=== PATIENT | male | born 1990 | race Caucasian/White ===

== ENCOUNTER 2022-03-16 14:39 | Emergency (ER) | payer BC, SELFPAY ==
--- NOTE | 2022-03-16 14:41 | ED.GENADULT ---
HPI - General Adult General Chief complaint: Upper Respiratory Infection Stated complaint: Sore Throat,Headache Time Seen by Provider: 03/16/22 14:41 Source: patient Mode of arrival: ambulatory Limitations: no limitations History of Present Illness HPI narrative: 31-year-old male patient presents to the [facility] with complaints of flulike symptoms that started late last night early this morning. Patient complaining of fever as high as 101, sore throat, headache. Denies chest pain, shortness of breath. Denies any abdominal pain, nausea, vomiting or diarrhea. Patient states he had influenza last year. Patient states he does get strep often. Patient also states that he is vaccinated against COVID. Review of Systems Review of Systems: CONSTITUTIONAL: Positive subjective fever, denies chills, or sweats. EYES: Denies visual changes, redness, or discharge. ENT: Denies rhinorrhea, congestion, positive sore throat, denies otalgia. CARDIOVASCULAR: Denies chest pain, palpitations, or edema. RESPIRATORY: Denies cough or dyspnea. GASTROINTESTINAL: Denies abdominal pain, nausea, vomiting, or diarrhea. GENITOURINARY: Denies dysuria or hematuria. SKIN: Denies rash or itching. MUSCULOSKELETAL: Denies back pain, joint pain, or myalgia. NEUROLOGIC: Positive headache, denies numbness, or weakness. PSYCHIATRIC: Denies anxiety or depression. PMFSH Comments At the time of my signature I agree with nursing past medical history, surgical, social, and family history. There is no relevant family history pertinent to the presenting complaint. Exam Narrative: GENERAL: Well-appearing, well-nourished, and in no acute distress. HEAD: Normocephalic, atraumatic. EYES: PERRLA and EOMI. ENT: Nares with erythema and edema noted to the right ear, no rhinorrhea or epistaxis. Mucous membranes moist. Posterior pharynx no erythema, tonsillar lodgment, exudates or lesions present. Bilateral TMs are clear with no erythema or foreign bodies to the canal. NECK: Supple. No lymphadenopathy CHEST: Clear to auscultation. No respiratory distress. HEART: Regular rate and rhythm. No murmur heard. Normal peripheral pulses. ABDOMEN: Soft, nontender, nondistended, normal active bowel sounds. EXTREMITIES: Normal range of motion. No edema. SKIN: Warm, dry, no rash. NEURO: No focal deficits. Alert and oriented x3. Course Course Level of Care: Express Care Visit Reevaluation(s) Reevaluation #1: Patient was reevaluated. Discussed with patient that his strep test and COVID test today were negative. Discussed with patient that this does not mean he does not have COVID considering his symptoms started late last night or early this morning it could take up to 3 to 5 days for him to test positive if he does have COVID. Discussed with patient that no matter what he does have a virus that is considered contagious. Patient needs to be away from other people and treat symptoms symptomatically with fluids and [id number] medications as needed. Advised patient that if he still having symptoms to test himself in about 2 days. We did do a PCR test today and has it sent off to the lab. Patient is to stay out of work until he receives results at this time. Patient can go back to work once he has been symptom-free and fever free for over 24 hours. Vital Signs Vital signs: Vital Signs Temperature 37.3 C 03/16/22 14:50 Pulse Rate 94 03/16/22 14:50 Respiratory Rate 24 H 03/16/22 14:50 Blood Pressure 141/94 H 03/16/22 14:50 Pulse Oximetry 100 03/16/22 14:50 Oxygen Delivery Room Air 03/16/22 14:50 Temperature 37.3 C 03/16/22 14:50 Pulse Rate 94 03/16/22 14:50 Respiratory Rate 24 H 03/16/22 14:50 Blood Pressure 141/94 H 03/16/22 14:50 Pulse Oximetry 100 03/16/22 14:50 Oxygen Delivery Room Air 03/16/22 14:50 Vital signs reviewed The patient has been informed that they may have pre-hypertension or Hypertension based on a BP reading in the department.
[2022-03-16 14:50] VITALS: BP 141/94; PULSE 94; RESP 24; TEMP 37.3; O2SAT 100
[2022-03-16 19:01] LABS: SARS-CoV-2 RNA PCR Negative
== END 2022-03-16 15:25 | disposition home or self-care (01) ==
PROVIDERS: Emergency Provider Nurse Practitioner Family
DX: B34.9 Viral infection, unspecified (principal); Z20.822 Contact with and (suspected) exposure to COVID-19
CPT/HCPCS: 87081; 87426; 87880; 99203; C9803; G0463; U0003; U0005

== ENCOUNTER 2022-08-28 09:18 | Emergency (ER) | payer BC, OTHER, SELFPAY ==
--- NOTE | ~2022-08-28 | XR_ITS ---
EXAMINATION: XR abdomen/kub 1V DATE: 08/28/2022 10:04 INDICATION: Left flank pain. Hematuria. TECHNIQUE: A supine view of the abdomen on 2 radiographs was obtained. COMPARISON: None. FINDINGS: There are no dilated loops of bowel. There is a small volume of stool in the colon. There i s no visible urolithiasis. IMPRESSION: 1. No etiology for the patient's symptoms. Reviewed, dictated and finalized at location A. 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
--- NOTE | 2022-08-28 09:36 | ED.MALEGU ---
HPI - Male Genitourinary General Chief complaint: Urogenital-Male Stated complaint: uti complaint Time Seen by Provider: 08/28/22 09:37 Source: patient Mode of arrival: ambulatory Limitations: no limitations History of Present Illness HPI Narrative: 31-year-old male presents with complaint of urinary urgency for 4 days. Reports some intermittent discomfort to suprapubic, left flank. today discomfort is worse dysuria. Reports history of epididymitis about 8 years ago with similar symptoms. Reports no testicular pain at this time. No concerns for STI. No flank pain At this time. Afebrile. Denies nausea vomiting diarrhea. Has appointment with his PCP in 2 days. All systems reviewed and negative except as noted above. Related Data Allergies Allergy/AdvReac Type Severity Reaction Status Date / Time No Known Allergies Allergy Verified 08/28/22 09:37 Review of Systems Review of Systems: CONSTITUTIONAL: Denies fever, chills, or sweats. EYES: Denies visual changes, redness, or discharge. ENT: Denies rhinorrhea, congestion, sore throat, or otalgia. CARDIOVASCULAR: Denies chest pain, palpitations, or edema. RESPIRATORY: Denies cough or dyspnea. GASTROINTESTINAL: Denies abdominal pain, nausea, vomiting, or diarrhea. GENITOURINARY: Reports urgency, dysuria, left flank pain. SKIN: Denies rash or itching. MUSCULOSKELETAL: Denies back pain, joint pain, or myalgia. NEUROLOGIC: Denies headache, numbness, or weakness. PSYCHIATRIC: Denies anxiety or depression. All other systems reviewed are negative, except as documented in HPI. PMFSH Comments At time of signature, agree with nursing past medical, surgical, social and family history. There is no relevant family history pertinent to the presenting complaint. Exam Narrative: GENERAL: This is a well-nourished, well-developed patient, in no apparent distress. HEAD: normocephalic, atraumatic. EYES: PERRL. Sclera clear/white. Vision is grossly intact. EARS: External ears normal NOSE: External nose normal NECK: Neck supple, non-tender without lymphadenopathy, masses or thyromegaly. CARDIOVASCULAR: Regular rate and rhythm without murmurs, gallops, or rubs. RESPIRATORY: Clear to auscultation. Breath sounds equal bilaterally. No wheezes, rales, or rhonchi. SKIN: warm, Dry, intact with no suspicious lesions or rash, good texture and turgor. NEURO: awake, alert, and oriented to person, place and time. There were no obvious focal neurologic abnormalities. EXTREMITIES: No joint tenderness, effusion, or edema noted. BACK: Nontender without deformity. No CVA tenderness. Course Course Level of Care: Express Care Visit Vital Signs Vital signs: Reviewed MDM - Male Genitourinary MDM Narrative Medical decision making narrative: urinalysis 2+ blood. No leukocytes or nitrates. KUB negative for stones. Will treat with antibiotic due to symptoms rate has but with PCP in 2 days. Patient is aware of diagnosis, understands and agrees to treatment plan. Anticipatory guidance given. Patient agrees to follow-up as directed and is aware of reasons to seek care at the emergency department. Portions of this record may have been created with voice recognition software Imaging Data My impression: agree with radiologist Radiologist's impression: EXAMINATION: XR abdomen/kub 1V DATE: 08/28/2022 10:04 INDICATION: Left flank pain. Hematuria. TECHNIQUE: A supine view of the abdomen on 2 radiographs was obtained. COMPARISON: None. FINDINGS: There are no dilated loops of bowel. There is a small volume of stool in the colon. There is no visible urolithiasis. IMPRESSION: 1. No etiology for the patient's symptoms. Discharge Plan Discharge Clinical Impression: Urinary urgency, Dysuria Patient Disposition: Home, Self-Care Condition: Stable Instructions: Antibiotic Form, Urinary Tract Infection in Men (ED) Additional Instructions: your urinalysis was positi
[2022-08-28 09:37] VITALS: BP 144/88; PULSE 68; RESP 18; TEMP 36.6; O2SAT 98
== END 2022-08-28 10:23 | disposition home or self-care (01) ==
PROVIDERS: Emergency Provider Nurse Practitioner Family; PCP Family Medicine
DX: R39.15 Urgency of urination (principal); R30.0 Dysuria
CPT/HCPCS: 74018; 81003; 87086; 99213; G0463

== ENCOUNTER → 2022-11-02 10:04 | Outpatient (CLI) | payer BC, OTHER, SELFPAY ==
--- NOTE | ~2022-11-02 | XR_ITS ---
EXAM: XR lumbar spine min 4V DATE: 11/02/2022 10:48 HISTORY: LOW BACK PAIN,CHRONIC . COMPARISON: None available. FINDINGS: 5 nonrib-bearing lumbar-type vertebral bodies. Pedicles intact. 5 mm retrolisthesis of L5 on S1. Vertebral body heights preserved. Mild anterior wedge deformity at L1, presumed to be physiolo gic. Mild disc space narrowing at L4-5. Moderate disc space narrowing L5-S1. 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 No pars defect. No fracture or dislocation. IMPRESSION: Grade 1 retrolisthesis and moderate degenerative disc disease at L5-S1. Reviewed, dictated and finalized at location K. IMPRESSION: Grade 1 retrolisthesis and moderate degenerative disc disease at L5 -S1.
--- NOTE | ~2022-11-02 | XR_ITS ---
EXAM: XR thoracic spine 2V DATE: 11/02/2022 10:49 HISTORY: CHRONIC THORACIC PAIN . COMPARISON: None available. FINDINGS: Vertebral body alignment intact. Vertebral body heights preserved. No disc space narrowing . No traumatic malalignment or fracture. Visualized lung parenchyma is clear. IMPRESSION: Normal thoracic spine radiograph findings. Reviewed, dictated and finalized at location K.
== END ==
PROVIDERS: PCP Family Medicine; Visit Provider Chiropractor
DX: M51.37 Other intervertebral disc degeneration, lumbosacral region (principal)
CPT/HCPCS: 72070; 72110

== ENCOUNTER 2025-04-29 17:53 | Emergency (ER) | payer OTHER, SELFPAY ==
--- OUTSIDE RECORDS SUMMARY | 2014-06-13 03:59 | XMS_ITS | Continuity of Care Document ---
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 Phone Luís REICH, Herlinda Unavailable Unavai lable Allergies, Adverse Reactions, Alerts Substance Reaction Status Criticality No Known allergies Medications Medication Instructions Dosage Effective Dates (start - stop) Status Comments erythromycin 5 mg/gram (0.5 %) Eye Ointment apply (1CM) by ophthalmic route 4 times every day after surgery to sutures - Active MULTIPLE VITAMINS (unknown strength) Not Available - Active Procedures Procedure Date REPAIR EYELID DEFECT REPAIR EYELID DEFECT POSTOP FOLLOW-UP VISIT POSTOP FOLLOW-UP VISIT TREAT EYE SOCKET FRACTURE OFFICE/OUTPATIENT VISIT, [facility] Advance Directives Directive Yes / No Effective Date File Name No Information Encounters Encounter Description Practice Location Reason(s) For Visit Diagnoses Date Provider Providers Copied on Encounter Reyna , [address] [place] [address], [id number], tel:[phone] [facility] No Information 4 Luís Pate. [address] [place] [address], [place], [id number], [place]. tel:[phone] [facility] , [address] [place] [address], [id number], tel:[phone] [facility] No Information 4 [facility]. [address] [place] [address], [address], [id number]. tel:[phone] Referring Provider: Grayson Cantor, [address] [place] [address], [place], [address] . tel:[phone] [facility], [address] [place] [address], [id number], [place] tel:[phone] [facility] No Information 4 [facility]. [address] [place] [address], [place], [place], [id number]. tel:[phone] [facility], [address] [place] [address], [id number], [place] tel:[phone] [facility] Ptosis of eyelid, unspecified 4 [facility]. [address] [place] [address], [id number]. tel:[phone] [facility], [address] [place] [address], [id number], [place] tel:[phone] [facility] Closed fracture of other facial bones 4 [facility]. [address] [place] [address], [id number]. tel:[phone] [facility], [address] [place] [address], [id number], [place] tel:[phone] [facility] Closed fracture of other facial bones 4 [facility]. [address] [place] [address], [place], [place], [id number]. tel:[phone] [facility], [address] [place] [address], [id number], [place] tel:[phone] [facility] No Information 4 [facility]. [address] [place] [address], [id number]. tel:[phone] OFFICE/OUTPA TIENT VISIT, [facility], [address] [place] [address], [id number], [place] tel:[phone] [facility] Closed fracture of other facial bones 4 [facility]. [address] [facility], [address], [place], [place], [id number]. tel:[phone] Family History Family Member Type Diagnosis Age At Onset No Information Payers Payer name Insurance type Covered alliance party ID Authoriza tion(s) No Information Social History Type Description Quantity Date Captured Comments Sex Male Smoking Status No Information Chief Complaint And Reason For Visit No Information Reason For Referral Reason For Referral No Information History Of Present Illness Encounter Date Complaint History Of Prese nt Illness pt. has had headaches ever since sx. KH Says OD doesn't loo k right to him and thinks eyes don Says OD doesn't loo k right to him and thinks eyes don Thought he was heali ng well until 3 days ago when he vo Functional Status Date Functional Assessmen t No Information Instructions Date Instruction Additional Infor velma - Educational materi als provided: Post-Op Instructions. - Educational materi als provided: Pre-Op Instructions. - Return to office in 6 weeks. Shaun Cantor - Post-op photo take n. Opens and closes well. RUL looks a little droopy. Per REW wait to see when swelliing decreases if lid does not correct itself. Will raise RUL if needed and will discuss at next visit. MARIA ALEJANDRA Closed fracture of o ther facial bones : Related to Closed fracture of other facial bones Closed fracture of o ther facial bon : - Discussed will review ct scans. 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 Will call patient after reviewing scan. fb Related to Closed fracture of other facial bon Assessments Type Assessment Date No Information Patient Care Teams Name Effective Dates (start - stop) Status Members No Information
--- OUTSIDE RECORDS SUMMARY | 2025-04-29 17:56 | XMS_ITS | Patient Health Record ---
Author Organization [facility] Address [facility] [facility] [address] [place] [address] Care Team Providers Care Caregivers Non Medical Name Role Phone Dominick Givens [phone] Reason For Referral No Information Medications Medication SIG (Take, Route, Frequency, Duration) Notes Start Date End Date Status Tamsulosin HCl 0.4 MG Capsule Oral Active Sertraline HCl 50 MG Tablet Oral Active Ciprofloxacin HCl 500 MG Tablet Oral Active Social History Social History Additional Details Category Social Info Options Details Migrated Social History Migrated Social History Tobacco Years: Former smoker 06/06/2023 Plan Of Treatment No Information Insurance Providers Payer Name Payer Address Payer Phone Subscriber Number Group Number Insured Name Patient Relationship to Insured Coverage Start Date Coverage End Date [facility] [address] [place] [address] [id number] LASHONDA CALEOR Self - patient is the insured
[2025-04-29 18:02] VITALS: BP 139/98; PULSE 84; RESP 16; TEMP 36.6; O2SAT 100
[2025-04-29 18:13] LABS: EDSTREPNEGPOS1 Negative (Negative)
--- NOTE | 2025-04-29 18:17 | ED_ITS ---
HPI - URI/Sore Throat General Chief Complaint: Upper Respiratory Infection Stated Complaint: Sore throat Time Seen by Provider: 04/29/25 18:11 Source: patient and RN notes reviewed Mode of arrival: ambulatory Limitations: no limitations History of Present Illness HPI Narrative: Patient presents today complaining of sore throat, dizziness, and headache that started this afternoon. Denies any additional symptoms or known sick contacts. Currently rates his pain 4/10, which increases with swallowing. No OTC treatment prior to arrival. Related Data Home Medications ?Medication ?Instructions ?Recorded ?Confirmed ?Last Taken ?Type No Home Medications 04/29/25 04/29/25 U nknown History Allergies Allergy/AdvReac Type Severity Reaction Status Date / Time No Known Allergies Allergy Verified 04/29/25 18:05 [facility] Comments At time of signature, I have reviewed and agree with nursing past medical, surgical, social and family history unless otherwise noted. Please see nursing chart for further information. There is no relevant family history pertinent to the presenting complaint Exam Narrative: GENERAL: Well-appearing, well-nourished, and in no acute distress. HEAD: Normocephalic, atraumatic. EYES: EOMI. No redness or drainage. Conjunctivae normal. ENT: Mucous membranes pink and moist. Nares clear. No rhinorrhea. TMs normal bilaterally. Throat mildly erythematous and edematous without exudate. Uvula midline. NECK: Normal AROM. Supple. No lymphadenopathy. CHEST: No respiratory distress. Clear to auscultation. HEART: Regular rate and rhythm. No murmur appreciated. EXTREMITIES: Normal range of motion. No edema. SKIN: Warm, dry, no rash. Capillary refill normal. Normal skin turgor. NEURO: No focal deficits. Alert and oriented x3. Gait steady. PSYCH: Normal affect. No signs of depression or anxiety. Course Course Level of Care: Express Care Visit Vital Signs Vital signs: Vital Signs Temperature 98 F 04/29/25 18:02 Pulse Rate 84 04/29/25 18:02 Respiratory Rate 16 04/29/25 18:02 Blood Pressure 139/98 H 04/29/25 18:02 Pulse Oximetry 100 04/29/25 18:02 Oxygen Delivery Room Air 04/29/25 18:02 Temperature 98 F 04/29/25 18:02 Pulse Rate 84 04/29/25 18:02 Respiratory Rate 16 04/29/25 18:02 Blood Pressure 139/98 H 04/29/25 18:02 Pulse Oximetry 100 04/29/25 18:02 Oxygen Delivery Room Air 04/29/25 18:02 Reviewed MDM - URI/Sore Throat MDM Narrative Medical decision making narrative: 34-year-old male Patient presents today complaining of sore throat, dizziness, and headache that started this afternoon. Denies any additional symptoms or known sick contacts. Currently rates his pain 4/10, which increases with swallowing. Upon exam, patient is throat is mildly erythematous and edematous without exudate. Remainder of exam is normal. Rapid strep negative. Culture pending. Symptoms likely viral in etiology or could be too early for rapid test as symptoms began a few hours prior to exam. Discussed [id number]-lvs-qgakrin medication use and duration of illness. No prescription medications indicated at this time. Anticipatory guidance given. VSS. Differential Diagnosis Differential diagnosis: Likely upper respiratory infection, viral infection, pharyngitis and other (Strep throat) Lab Data Attestation: I reviewed the patient's lab results. Labs: Lab Results 04/29/25 Range/Units 18:11 POC Grp A Strep Screen Negative (Negative) Critical Care Time Critical Care Time Critical Care Time: No Discharge Plan Discharge Clinical Impression: Pharyngitis Qualifiers: Pharyngitis/tonsillitis etiology: unspecified etiology Qualified Code(s): J02.9 - Acute pharyngitis, unspecified Patient Disposition: Home Condition: Stable Instructions: Pharyngitis (ED) Additional Instructions: Your rapid strep swab was negative today at [facility]. You will be notified in a few days if the culture comes back positive for strep, and appropriate antibiotics will be called in for you at that time. 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 Viral symptoms can be present for up to 7- 10 days. Take Tylenol or ibuprofen for fever or pain. Rest and stay hydrated. Follow up with your PCP in 7-10 days if symptoms are not improving. Go to the ER immediately if you have any difficulty breathing or swallowing. Patient Language: Honduran Prescriptions: No Action No Home Medications Follow-up/Referrals: [facility] [Primary Care Provider, Medical] Time of Disposition: 18:17
== END 2025-04-29 18:20 | disposition home or self-care (01) ==
PROVIDERS: Emergency Provider Nurse Practitioner
DX: J02.9 Acute pharyngitis, unspecified (principal)
CPT/HCPCS: 87081; 87880; 99213; G0463

== ENCOUNTER 2025-08-01 08:38 | Emergency (ER) | payer OTHER, SELFPAY ==
--- OUTSIDE RECORDS SUMMARY | 2025-08-01 08:42 | XMS_ITS | Clinical Summary ---
Author Organization [facility] Address [facility] [place] [address] Care Team Providers Care Septic Tank Cleaner Name Role Phone Winter Pond DO Primary Care Provider [phone] Allergies No known active allergies Medications CPAP MACHINE Take 1 Device by mouth every evening. Active buPROPion XL (WELLBUTRIN XL) 150 MG 24 hr tabletIndicatio ns:Mild episode of recurrent major depressive disorder,BALA (generalized anxiety disorder) Take 1 tablet (150 mg total) by mouth daily. 30 tablet 1 12/31/2023 Active sertraline (ZOLOFT) 50 MG tabletIndicatio ns:Mild episode of recurrent major depressive disorder,BALA (generalized anxiety disorder) Take 1 tablet (50 mg total) by mouth daily. 90 tablet 2 12/31/2023 Active propranolol (INDERAL) 10 MG tabletIndicatio ns:Mild episode of recurrent major depressive disorder,BALA (generalized anxiety disorder) TAKE 1 TABLET(10 MG) BY MOUTH DAILY NEEDED FOR ANXIETY 90 tablet 01/01/2024 Active Active Problems Problem Noted Date Diagnosed Date Obesity (BMI 30-39.9) 12/26/2020 Sleep apnea Anxiety Depression Skin writing Chronic low back pain Dry eye of right side Post concussive syndrome Tinnitus Immunizations Immunization Administration Dates Next Due Adenovirus Vaccine 09/11/2012 Anthrax Vaccine 12/13/2015,05/31/2015,05/03/2015 Hepatitis A (Havrix [address]) 04/22/2013,2012 Influenza (FluMist) 06/24/2014,05/19/2013 Influenza (Generic) 05/29/2016,05/03/2015,2012 Lao Encephalitis 05/31/2015,05/03/2015 Meningococcal (Menactra) 09/11/2012 PFIZER COVID-19 (ORIGINAL FO RMULATION, PURPLE CAP) mRNA, LNP-S, PF, 30 MCG/0.3 ML DOSE 11/10/2020,10/20/2020 Polio IPV (Ipol) 09/11/2012 Tdap (Generic) 01/02/2018,09/11/2012 Typhoid (Typhim ) 05/03/2015 Varicella (Varivax) 10/14/2012,09/11/2012 Family History Medical History Relation Comments Colon Cancer Cousin age 30 Heart Disease Maternal Grandfather Hypertension Maternal Grandfather Arthritis Mother Cancer Mother ovarian, breast, and esophageal (40s) Diabetes Paternal Grandmother Heart Disease Paternal Grandmother Relation Status Comments Cousin Maternal Grandfather Mother Paternal Grandmother Social History Tobacco Use Types Packs/Day Years Used Date Smoking Tobacco: Former Cigarettes 0.5 4 0 11/22/2011 - 11/22/2015 Smokeless Tobacco: Never Tobacco Cessation:Counseling Given: No Alcohol Use Standard Drinks/Week Comments Not Currently 0 (1 standard drink = 0.6 oz pur e alcohol) PHQ-2 Answer Date Recorded Patient Health Questionnaire-2 Score 1 12/31/2023 Sex and Gender Information Value Date Recorded Sex Assigned at Not on file Legal Sex Male 3:30 PM CDT Gender Identity Not on file Sexual Orientation Not on file Last Filed Vital Signs Vital Sign Reading Time Taken Comments Blood Pressure 124/76 06/23/2023 2:57 PM [employer] Pulse 64 06/23/2023 2:57 PM [employer] Temperature 36.5 C (97.7 F) 06/23/2023 2:57 PM [employer] Respiratory Rate 18 06/23/2023 2:57 PM [employer] Oxygen Saturation 98% 06/23/2023 2:57 PM [employer] Inhaled Oxygen Concentration - - Weight 112.1 kg (247 lb 3.2 oz) 06/23/2023 2:57 PM [employer] Height 177.8 cm (5' 10) 06/23/2023 2:57 PM [employer] Body Mass Index 35.47 06/23/2023 2:57 PM [employer] Plan of Treatment Upcoming Encounters Date Type Department Care Team (Late st Contact Info) Description 10/20/2025 7:30 AM CDT Office Visit [facility] - [place] [address] [place] [address] Angelita Nolen MD [address] [place] [address] Health Maintenance Due Date Last Done Comments Hepatitis C 12/04/2007 Hepatitis B Vaccines (1 of 3 - 19+ 3-dose series) 2008 HPV Vaccines (1 - 3-dose SCDM series) 2016 Annual Physical 06/23/2024 06/23/2023, 12/26/2020 PHQ-2 (Physician [place]) 08/04/2024 12/31/2023 COVID-19 Vaccine (3 - 2024- season) 2025 11/10/2020, 10/20/2020 Influenza Adult (#1) 2025 05/29/2016, 05/03/2015, 06/24/2014, Additional history exists DTaP, Tdap and Td Vaccines (3 - Td or Tdap) 01/03/2028 01/02/2018, 09/11/2012 Meningococcal Vaccine Aged Out 09/11/2012 No debo jamel eligible based on patient's age to complete this topic Hepatitis A Vaccines Aged Out 04/22/2013, 09/11/19 13 No longer eligible based on patient's age to complete this topic Meningococcal B Vaccine Aged Out No l onger eligible based on patient's age to complete this topic Pneumococcal Vaccine: Pediatrics (0 to 5 Years) and At-Risk Patients (6 to 49 Years) Aged Out No longer eligible based on patient's age to complete this topic RSV Immunizations Under 20 Months Aged Out No longer eligible based on patient's age to complete this topic Insurance [facility] Care Teams Septic Tank Cleaner Relationship Specialty Start Date End Date Winter Pond DO [address] [place] [id number] PCP - General FAMILY PRACTICE 08/29/22
[2025-08-01 08:51] VITALS: BP 143/102; PULSE 107; RESP 20; TEMP 36.6; O2SAT 97
[2025-08-01 09:12] LABS: EDCOVIDSCREEN Negative (Negative); EDINFLUASCREEN Positive (Negative); EDINFLUBSCREEN Negative (Negative); EDSTREPNEGPOS1 Positive (Negative)
--- NOTE | 2025-08-01 09:18 | ED.URI ---
HPI - URI/Sore Throat General Chief Complaint: Upper Respiratory Infection Stated Complaint: Flu Like Time Seen by Provider: 08/01/25 09:05 Source: patient and RN notes reviewed Mode of arrival: ambulatory Limitations: no limitations History of Present Illness HPI Narrative: 34-year-old male patient presents today with a 3 day history of headache, sore throat, fever up to 101. Denies shortness of breath or difficulty swallowing. Currently rates his pain 5/10 and has tried NyQuil with some mild relief. No recent antibiotic use. Related Data Allergies Allergy/AdvReac Type Severity Reaction Status Date / Time No Known Allergies Allergy Verified 08/01/25 08:49 PMFSH Comments At time of signature, I have reviewed and agree with nursing past medical, surgical, social and family history unless otherwise noted. Please see nursing chart for further information. There is no relevant family history pertinent to the presenting complaint Exam Narrative: GENERAL: Well-appearing, well-nourished, and in no acute distress. HEAD: Normocephalic, atraumatic. EYES: EOMI. No redness or drainage. Conjunctivae normal. ENT: Mucous membranes pink and moist. Nares clear. No rhinorrhea. TMs normal bilaterally. Throat mildly erythematous without edema or exudate. Uvula midline. NECK: Normal AROM. Supple. No lymphadenopathy. CHEST: No respiratory distress. Clear to auscultation. HEART: Regular rate and rhythm. No murmur appreciated. EXTREMITIES: Normal range of motion. No edema. SKIN: Warm, dry, no rash. Capillary refill normal. Normal skin turgor. NEURO: No focal deficits. Alert and oriented x3. Gait steady. PSYCH: Normal affect. No signs of depression or anxiety. Course Course Level of Care: Express Care Visit Vital Signs Vital signs: Vital Signs Temperature 97.8 F 08/01/25 08:51 Pulse Rate 107 H 08/01/25 08:51 Respiratory Rate 20 08/01/25 08:51 Blood Pressure 143/102 H 08/01/25 08:51 Pulse Oximetry 97 08/01/25 08:51 Oxygen Delivery Room Air 08/01/25 08:51 Temperature 97.8 F 08/01/25 08:51 Pulse Rate 107 H 08/01/25 08:51 Respiratory Rate 20 08/01/25 08:51 Blood Pressure 143/102 H 08/01/25 08:51 Pulse Oximetry 97 08/01/25 08:51 Oxygen Delivery Room Air 08/01/25 08:51 Review [facility] Narrative Medical decision making narrative: 34-year-old male patient presents today with a 3 day history of headache, sore throat, fever up to 101. Denies shortness of breath or difficulty swallowing. Currently rates his pain 5/10 and has tried NyQuil with some mild relief. No recent antibiotic use. Upon exam, patient has a mildly erythematous throat without edema exudate. Influenza a and rapid strep positive. Patient will be started on course of amoxicillin for the strep throat. He is out of the window to start Tamiflu. Discussed continuing OTC medication for symptoms as well. Patient agrees with plan. Mildly elevated blood pressure and slightly tachycardic. Patient agrees with plan. Anticipatory guidance given. Differential Diagnosis Differential Diagnosis: Influenza, strep throat, COVID-19, URI, pharyngitis Lab Data [facility] Lab Attestation statement: I personally reviewed the patient's lab results. Labs: Lab Results 08/01/25 Range/Units 09:10 POC Influenza A Ag Positive (Negative) POC Influenza B Ag Negative (Negative) POC SARS CoV-2 Ag Negative (Negative) POC Grp A Strep Screen Positive (Negative) Critical Care Time Critical Care Time Critical Care Time: No Discharge Plan Discharge Clinical Impression: Strep throat, Influenza A Patient Disposition: Home Condition: Stable Instructions: Antibiotic Form, Strep Throat (DC), Influenza (DC) Additional Instructions: You tested positive for strep throat and influenza a. Please take the amoxicillin as prescribed until gone for the strep. You will be contagious with strep throat for 24 hours after starting the amoxicillin. You will continue to be contagious with influenza until you start feeling better. Take Tylenol or Ibuprofen for pain or fever, if able. Rest and stay hydrated. Follow up with your PCP in 3 days if symptoms are not improving. Go to the ER immediately if you develop worsening symptoms such as shortness of breath, difficulty swallowing. Patient Language: Malay Prescriptions: New amoxicillin 875 mg tablet 875 mg PO Q12H 10 Days Qty: 20 0RF Follow-up/Referrals: [facility] [Primary Care Provider, Medical] Time of Disposition: 09:21
== END 2025-08-01 09:24 | disposition home or self-care (01) ==
PROVIDERS: Emergency Provider Nurse Practitioner
DX: J02.0 Streptococcal pharyngitis (principal); Z20.822 Contact with and (suspected) exposure to COVID-19
CPT/HCPCS: 87426; 87804; 87880; 99213; G0463